=== PATIENT | male | born 1945 | race Caucasian/White ===

== ENCOUNTER 2018-04-30 07:30 | Inpatient (IN) ==
[~2018-04-30 07:30] MED LIST: Clindamycin 900mg (Premix) 900 MG/50 ML BAG IV ONE; LIDOCAINE W/ SODIUM BICARB 0.5 ML SYR SUBD ONE; Nasal Sanitizer POPSWAB ampule 3 AMP (Nozin) PREOP DOSE ENOS SCH
[2018-05-03] MEDS ORDERED: Clindamycin 900mg (Premix) 900 MG/50 ML BAG IV ONE ×2 (06:00→07:50)
[2018-05-03] MEDS ORDERED: LIDOCAINE W/ SODIUM BICARB 0.5 ML SYR SUBD ONE (06:00)
[2018-05-03] MEDS ORDERED: Nasal Sanitizer POPSWAB ampule 3 AMP (Nozin) PREOP DOSE ENOS SCH (06:00)
[2018-05-03] MEDS ORDERED: Lactated Ringers 1,000 ML PRIMARY IV SCH ×2 (06:00→13:42)
[2018-05-03] MEDS ORDERED: BUPivacaine Inj 0.25% PF - 10ml vial ONE (06:56)
[2018-05-03] MEDS ORDERED: Sodium Chloride 0.9% vial 40 ML ONE (06:56)
[2018-05-03] MEDS ORDERED: BACITRACIN 50,000 UNIT VIAL IRRIG ONE (06:56)
[2018-05-03] MEDS ORDERED: LIDOCAINE W/ SODIUM BICARB 0.5 ML SYR ONE (07:50)
[2018-05-03] MEDS ORDERED: Lactated Ringers 1,000 ML PRIMARY IV ONE (07:50)
[2018-05-03 08:29] LABS: BILIRUBIN,URINE NEGATIVE (NEG); CLARITY,URINE CLEAR (CLEAR); COLOR,URINE YELLOW (Y); GLUCOSE, URINE (UA) NEGATIVE (NEG); OCCULT BLOOD,URINE Trace-intact (NEG); PH,URINE 5.5 (5.0-8.5); PROTEIN,URINE NEGATIVE (NEG); RBC,URINE 0 /hpf; URINE SAMPLE TYPE CLEAN CATCH URINE; UROBILINOGEN,URINE 0.2 EU/dL (0.2)
[2018-05-03] MEDS ORDERED: fentaNYL Inj 250 MCG/5 ML VIAL ONE (09:29)
[2018-05-03] MEDS ORDERED: BUPIVACAINE 0.5% W/ EPI - 10 ML VIAL ONE (09:29)
[2018-05-03] MEDS ORDERED: MIDAZOLAM 5 MG/1 ML ONE (09:29)
[2018-05-03] MEDS ORDERED: Ropivacaine 0.2% VIAL 20 ML ONE (09:30)
--- NOTE | 2018-05-03 09:42 | CRNA.PROCE ---
Nerve Block Documentation - - Safety Measures: Time Out Taken, Site Verified - - Type of Nerve Block Used: Left Adductor Canal Nerve Block Position for Nerve Block: Supine Moniters Used During Block: EKG, SPO2, NIBP Oxygen Supplemented: Yes Sedation Used - Enter Amount in Comment Field [ANES.SEDAT]: Midazolam (mg): Yes (3), Fentanyl (mcg): Yes (50) Skin Prep Used: ChloroPrep (Twice) Draped: No Technique: Ultrasound Nerve Block Needle Used: EchoBright 50 mm Local Anesthetic - Enter Amt in Comment Field [ANES.LOCNB]: 0.5 % Bupivicaine with Epinephrine 1:200,000 (mL): Yes (10 ml), 0.2 % Ropivacaine (mL): Yes (20 ml ) Additives to Nerve Blocks: Dexamethasone (mg): Yes (4 mg) - - PreOp Block : Time In: 09:21 PreOp Block : Time Out: 09:35 Anesthesia Time - Other Weight: 77.111 kg Height: 5 ft 6 in Body Mass Index (BMI): 27.4
--- NOTE | 2018-05-03 09:43 | CRNA.PROGR ---
Anesthesia Recovery Phase I - Post Anesthesia Evaluation Patient's Condition on Arrival in Phase I: Stable Patient's Condition on Arrival in Phase II: Stable Pain Level: 0
--- NOTE | 2018-05-03 09:43 | CRNA.PROGR ---
Anesthesia Time - Procedure/Recovery Time Start Date: 05/03/18 End Date: 05/03/18 Anesthesia : Time In: 10:02 Anesthesia : Time Out: 13:05 Anesthesia : Total Time: 183 - Block Time PreOp Block : Time In: 09:21 PreOp Block : Time Out: 09:35 - Total Anesthesia Time Total Anesthesia Time (minutes): 183 - Other Weight: 77.111 kg Height: 5 ft 6 in Body Mass Index (BMI): 27.4 Physical Status: P2 Anesthesia Type: General Anesthesia : ET
--- NOTE | 2018-05-03 09:44 | CRNA.PROGR ---
Post Anesthesia Phase II - Post Anesthesia Phase II Patient Stable and Discharged To: Med/Surg Care Assumed By Surgeon: Antelmo Begum MD Temperature: 97.2 F Pulse Rate: 68 Respiratory Rate: 17 Blood Pressure: 157/98 Pulse Ox: 93 Total Linnea Score at Discharge: 9 Post Anesthesia Discharge Criteria Met: Yes
[2018-05-03] MEDS ORDERED: KETAMINE 100 MG/1 ML - 5 ML ONE (09:54)
[2018-05-03] MEDS ORDERED: PROPOFOL 10 MG/1 ML (200 MG/20 ML) VIAL IV ONE (09:54)
[2018-05-03] MEDS ORDERED: VECURONIUM BROMIDE 10 MG VIAL ONE (09:55)
[2018-05-03] MEDS ORDERED: Sodium Chloride 0.9% vial 10 ML ONE (09:55)
[2018-05-03] MEDS ORDERED: Ketorolac Inj 30 MG, Morphine Inj (Ortho Cocktail) 5 MG, BUPivacaine Inj 0.25% PF 150 MG SPLASH ONE ×3 (10:00)
[2018-05-03] MEDS ORDERED: TRANEXAMIC ACID 1,000 MG / 10 ML VIAL ONE (10:19)
[2018-05-03] MEDS ORDERED: Hetastarch 6% + NS 500 ML IV ONE (10:19)
[2018-05-03] MEDS ORDERED: BUPivacaine Liposome/PF (Exparel) Inj 20ml vial INFIL ONE (10:47)
[2018-05-03] MEDS ORDERED: ePHEDrine Inj 50 MG/ML AMP ONE (10:53)
--- NOTE | 2018-05-03 13:03 | ORTHO.OP ---
Surgery Date: 05/03/18 Preoperative Diagnosis: L medial compartment varus gonarthrosis Postoperative Diagnosis: same Procedure: Left [place] mobile bearing unicompartmental knee replacement Surgeon: Antelmo Begum MD Manager Utilization: Delia Greene PA-C Anesthesia Provider: Patsy Lyles CRNA Anesthesia Type: General, Regional Estimated Blood Loss (mL): 100 Fluids: 1000 ml LR. 500 ml Hespan Operative Summary: tt 30 min @ 250 mmHg
[2018-05-03 13:14] LABS: Hematocrit [HCT] 37.7 % (42.0-52.0); Hemoglobin [HGB] 12.5 g/dL (14.0-18.0)
[2018-05-03] MEDS ORDERED: LIDOCAINE HCL 2 % 10 ML JELLY URO-JECT TOPICAL PRN (13:42)
[2018-05-03] MEDS ORDERED: ONDANSETRON 4 MG/2 ML VIAL IVP PRN (13:42)
[2018-05-03] MEDS ORDERED: MORPHINE SULFATE 2 MG/1 ML IVP PRN (13:42)
--- NOTE | 2018-05-03 14:09 | DI ---
LEFT KNEE, 05/03/2018 1:00 PM: Clinical History: Status post partial knee replacement. Osteoarthritis. Previous Exam: None at this facility. AP and lateral views are submitted. The patient is status post partial left knee replacement. The pro sthetic joint articulates normally. Reading: Status post partial left medial compartment knee replacement. The prosthetic joint articulates normal ly.
[2018-05-03] MEDS: Lactated Ringers 1,000 ML PRIMARY IV SCH ×2 (14:58→15:04)
[2018-05-03] MEDS ORDERED: ACETAMINOPHEN 325 MG TABLET PO PRN (15:33)
[2018-05-03] MEDS: HYDROcodone-APAP 7.5 MG-325 MG TABLET PO PRN ×2 (15:47→20:49)
[2018-05-03] MEDS: Clindamycin 900mg (Premix) 900 MG/50 ML BAG IV SCH ×2 (15:47→22:17)
[2018-05-03] MEDS ORDERED: Zolpidem Tab 5 MG TAB PO PRN (16:32)
--- NOTE | 2018-05-03 18:16 | CONSULT ---
Consult Note - Consult Reason for Consult: PostOp Consulation : Ortho Requesting Physician: Dr. Begum Primary Care Provider: NICOLETTE WELLS HPI - History of Present Illness Date of Service: 05/03/18 Time of Service: 17:00 Chief Complaint: Osteoarthritis and knee pain History of Present Illness: This is a very pleasant 73-year-old male with hypertension and hypercholesterolemia and osteoarthritis of both knees. He came in today for a unipolar knee replacement on the left knee. That was performed by Dr. Begum today. He admitted the patient and did the surgery today and I would ask that you refer to Dr. Begum's surgical note for details of the procedure. The patient postoperatively, is doing very well. He denies any chest pain, shortness breath, nausea or vomiting, or abdominal pain. He did get a pain pill and his block is wearing up to some degree but he states his knee pain is well controlled. There were no other exacerbating factors. He did have a headache that we treated with some Tylenol a little earlier today. He states the headache is getting better. The history was obtained in the presence of his at bedside who collaborated the history. Past Medical History Surgical History: 1. Hypertension. 2. Hypercholesterolemia. 3. Chronic back pain with a nerve stimulator in place which patient states has decreased his pain by 50%. 4. Osteoarthritis of the knees bilaterally Pertinent Family History: There is history of heart disease in the patient's family. Past Social History: Does not smoke or drink. for 43 years. 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 Lives in [place], [place]. Has 2 living children. Tobacco Use: Never Smoker In the Past 12 Months, Have Used or Abuse Any of the Following Substance: None Alcohol Use: None Review of Systems - Respiratory Respiratory: REPORTS: Negative System Review - Cardiovascular Cardiovascular: REPORTS: Negative System Review - Gastrointestinal Gastrointestinal / Abdominal: REPORTS: Negative System Review - Musculoskeletal Musculoskeletal: REPORTS: See HPI Medication / Allergies Home Medications: Home Medications 3 Medication Instructions Recorded Confirmed Type Bupropion HCl [Bupropion HCl ER] 150 mg PO BID 04/29/18 05/03/18 History Losartan/Hydrochlorothiazide 1 mg PO DAILY 04/29/18 05/03/18 History [Losartan-Hctz 100-12.5 mg Tab] [place]-3 Fatty Acids [Fish Oil] 1 mg PO DAILY 04/29/18 05/03/18 History Simvastatin 20 mg PO DAILY 04/29/18 05/03/18 History Zolpidem Tartrate [Ambien] 5 mg PO PRN PRN 04/29/18 05/03/18 History Hydrocodone/Acetaminophen 1 - 2 ea PO Q4-6H PRN #70 tab 05/03/18 Rx [Hydrocodon-Acetaminoph 7.5-325] Omeprazole 20 mg PO DAILY 05/03/18 05/03/18 History Allergies/Adverse Reactions: Allergies 3 Allergy/AdvReac Type Severity Reaction Status Date / Time Penicillins Allergy RASH Verified 05/03/18 08:22 Exam - Vitals Vital Signs: Vital Signs Temperature 97.2 F Temperature Source Temporal Artery Scan Pulse Rate [Pulse Oximeter] 87 Pulse Rate 68 Respiratory Rate 16 Blood Pressure [Left Arm] 118/77 Blood Pressure 157/98 Pulse Ox 97 Oxygen Flow Rate 2 Oxygen Delivery Method Nasal Cannula Height 5 ft 6 in Weight 170 lb - General General Appearance: No Acute Distress, Cooperative - Head Head Exam: Normal Inspection, Normocephalic, Atraumatic - Eye Eye Exam: POSITIVE: No Scleral Icterus - ENT ENT Exam: POSITIVE: Mucous Membranes Moist - Neck Neck Exam: Normal Inspection, No Tenderness, No Lymphadenopathy, No Thyromegaly , JVP is not Raised - Respiratory Respiratory Exam: POSITIVE: Clear to Auscultation - Bilaterally, Breathing Non Labored - Cardiovascular Cardiovascular Exam: POSITIVE: RRR, No Murmur, No Clicks, No Gallops, No Rubs, No JVD - GI/Abdominal GI/Abdominal Exam: POSITIVE: Normal Bowel Sounds, Non Tender, Non Distended, Soft - Rectal Rectal Exam: POSITIVE: Deferred - External Exam: POSITIVE: Deferred Exam: POSITIVE: Deferred - Extremities Extremities Exam: POSITIVE: No Clubbing Present, No Edema Present, No Cyanosis Present Additional Extremities Exam Details: Left knee is currently in CPM device - Neurological Neurological Exam: POSITIVE: Alert, Oriented x 3, No Facial Droop, Speech Intact / Clear - Psychiatric Psychiatric Exam: POSITIVE: Normal Affect, Normal Mood Results - Labs CBC and BMP: 05/03/18 13:09 Assessment and Plan - Patient Problems (1) Hypertension Current Visit: Yes Status: Acute Code(s): I10 - Essential (primary) hypertension Qualifiers: Hypertension type: essential hypertension Qualified Code(s): I10 - Essential (primary) hypertension (2) Hypercholesterolemia Current Visit: Yes Status: Acute Code(s): E78.00 - Pure hypercholesterolemia , unspecified (3) Knee joint replacement status Current Visit: Yes Status: Acute Comment: Unipolar knee replacement Code(s): Z96.659 - Presence of unspecified artificial knee joint Qualifiers: Laterality: left Qualified Code(s): Z96.652 - Presence of left artificial knee joint (4) Osteoarthritis of both knees Current Visit: Yes Status: Acute Code(s): M17.0 - Bilateral primary osteoarthritis of knee Qualifiers: Osteoarthritis type: primary Qualified Code(s): M17.0 - Bilateral primary osteoarthritis of knee - Assessment / Plan Additional Assessment/Plan Details: For now, I would recommend holding off on the patient's losartan/ hydrochlorothiazide, due to associations of angiotensin receptor blockers with perioperative renal failure and hypotension and I've asked the patient and his to resume that medication for the patient on Sunday. PT and OT as per orthopedics DVT prophylaxis as per orthopedics. Continue statin therapy and resume simvastatin during hospital stay. Thank you for this consult. It will be our pleasure to evaluate and assist in the management of hypertension and hypercholesterolemia during the patient's hospital stay.
[2018-05-03] MEDS: DOCUSATE 100 MG CAPSULE PO SCH (20:47)
[2018-05-03] MEDS: BuPROPion SR Tab 150 MG TAB PO SCH (20:47)
[2018-05-04] MEDS: HYDROcodone-APAP 7.5 MG-325 MG TABLET PO PRN ×3 (02:35→11:12)
[2018-05-04] MEDS: Clindamycin 900mg (Premix) 900 MG/50 ML BAG IV SCH (04:34)
[2018-05-04 04:38] LABS: Hematocrit [HCT] 36.5 % (42.0-52.0); Hemoglobin [HGB] 12.3 g/dL (14.0-18.0); MEAN CORPUSCULAR HEMOGLOBIN 29.9 PG (27-31); MEAN CORPUSCULAR HGB CONC 33.7 g/dL (33-37); MEAN CORPUSCULAR VOLUME 88.8 FL (80-90); MEAN PLATELET VOLUME 10.2 FL (7.4-12.2); RED BLOOD COUNT 4.11 10^6/uL (4.70-6.10)
[2018-05-04 04:58] LABS: BLOOD UREA NITROGEN 15 mg/dL (7-22); BUN/CREATININE RATIO 18.75 (6-20)
[2018-05-04 08:19] VITALS: BP 128/63; RESP 20; TEMP 98.2; O2SAT 94
[2018-05-04] MEDS ORDERED: OMEPRAZOLE 20 MG CAPSULE PO SCH (09:00)
[2018-05-04] MEDS ORDERED: ENOXAPARIN SODIUM 30 MG/0.3 ML SYRINGE SUBCUT SCH (09:00)
[2018-05-04] MEDS: DOCUSATE 100 MG CAPSULE PO SCH (09:45)
--- NOTE | 2018-05-04 09:48 | ORTHO.PROG ---
Last Taken Vital Signs: Vital Signs - Last Taken Temperature 98.2 F 05/04/18 08:00 Pulse Rate 83 05/04/18 08:00 Respiratory Rate 20 05/04/18 08:00 Blood Pressure 128/63 05/04/18 08:00 Pulse Ox 94 05/04/18 08:00 Subjective: Patient was down in PT when I saw him. He was ambulating well and going to work on stairs. He reports having medial knee pain as expected, but feels that his pain is controlled on the Hydrocodone. Denies any calf pain, CP, SOB, F/C. He states he feels ready to go home today. Objective: CBC and BMP 05/04/18 04:20 05/04/18 04:20 On exam, there patient is alert and orient x 3 and does not appear to be in any acute distress. There is a small amount of serosanguinous drainage on the bandage, but not saturated. AROM left knee 0-90 degrees without difficulties. Negative calf tenderness. NV intact. Radiographs of the left knee show status post Left medial UKA. The components are well fixed and positioned. Assessment: POD 1 from Left medial UKA overall doing well and pain is well controlled. Labs and vitals are stable. Plan: * DVT ppx: lovenox 30mg SC BID in hospital then discharged home on ASA 81mg 1 tablet daily. Also discharge home with portable SCD devices to wear 8 hours/day when on couch or in bed. * Pain medications: continue hydrocodone 7.5/325mg 1-2 tabs every 4-6 hours as needed for pain * PT: continue upon discharge per Dr. Begum's TKA protocol. Start outpatient PT on Sunday. * Ambulate with walker WBAT * Dressing may be removed on POD 3 and shower as normal. No soaking the incision x 4 weeks. * Discharge home once cleared by hospitalist and PT * Follow-up in 2 weeks as scheduled with ortho
[2018-05-04] MEDS: BuPROPion SR Tab 150 MG TAB PO SCH (10:26)
--- NOTE | 2018-05-04 10:40 | EKG ---
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
--- NOTE | 2018-05-04 11:22 | DCSUMMARY ---
Hospitalization Summary Admit Date: 05/03/2018 Discharge Date: 05/04/18 Primary Diagnosis:: status post unipolar left knee replacement Hospital Course: This very pleasant 73-year-old male who has bilateral knee osteoarthritis and had a unipolar knee replacement performed by Dr. Begum on 05/03/2018. See his notes and history and physical for further details. Postoperatively, the patient did very well. The hospital service was consulted to help address blood pressure and I made the choice to hold losartan/HCTZ and resume Sunday postoperatively. Patient is understood that instruction well. From a orthopedic standpoint, the patient met all of his PT and OT goes inside the hospital, his pain was well-controlled and he was ready to go home today. I did hear what sounded like an arrhythmia and EKG confirmed a sinus arrhythmia. I discussed this with the patient and his . They have cardiology follow-up in August as this is a benign rhythm, I think the patient can go home. He has no complaints of chest pain, shortness breath, nausea or vomiting. PT and OT and DVT prophylaxis will be done as per orthopedics. As the patient lives in [place], [place], I went ahead and sent in a pain prescription electronically to [facility] so the prescription would be waiting for the patient's who will be picking up his pain medication to bring home. I did not provide a refill. Assessment and Plan: 1. As per discharge assessments noted 2. Disposition: Patient is discharged home. 3. Condition on discharge, stable and improved. 4. Diet: regular diet 5. Activities: resume normal activities as per orthopedic instructions 6. Follow-Up: 1. Dr. Begum [address] Rinaldi in 1-2 weeks 7. Medications at the Time of Discharge: Home Medications 3 Medication Instructions Recorded Confirmed Type Bupropion HCl [Bupropion HCl ER] 150 mg PO BID 04/29/18 05/03/18 History Losartan/Hydrochlorothiazide 1 mg PO DAILY 04/29/18 05/03/18 History [Losartan-Hctz 100-12.5 mg Tab] [place]-3 Fatty Acids [Fish Oil] 1 mg PO DAILY 04/29/18 05/03/18 History Simvastatin 20 mg PO DAILY 04/29/18 05/03/18 History Zolpidem Tartrate [Ambien] 5 mg PO PRN PRN 04/29/18 05/03/18 History Hydrocodone/Acetaminophen 1 - 2 ea PO Q4-6H PRN #70 tab 05/03/18 Rx [Hydrocodon-Acetaminoph 7.5-325] Omeprazole 20 mg PO DAILY 05/03/18 05/03/18 History Aspirin [Aspir 81] 81 mg PO DAILY #30 tablet. 05/04/18 Rx HYDROcodone/APAP 7.5/325 Tab 1 - 2 tab PO Q4H PRN #60 tab 05/04/18 Rx [[place] 7.5/325 Tab] 8. Time, care, counseling and coordination of care for this discharge is less than 30 minutes. Exam - Vitals Vital Signs: Vital Signs Temperature 98.2 F Temperature Source Oral Pulse Rate [Pulse Oximeter] 83 Pulse Rate 68 Respiratory Rate 20 Blood Pressure [Left Arm] 128/63 Blood Pressure 157/98 Pulse Ox 94 Oxygen Flow Rate 2 Oxygen Delivery Method Room Air Height 5 ft 6 in Weight 168 lb 14.4 oz - General General Appearance: No Acute Distress, Cooperative - Eye Eye Exam: POSITIVE: No Scleral Icterus - ENT ENT Exam: POSITIVE: Mucous Membranes Moist - Respiratory Respiratory Exam: POSITIVE: Clear to Auscultation - Bilaterally, Breathing Non Labored - Cardiovascular Cardiovascular Exam: POSITIVE: RRR (Sinus arrhythmia confirmed.), No Murmur, No Clicks, No Gallops, No Rubs, No JVD - GI/Abdominal GI/Abdominal Exam: POSITIVE: Normal Bowel Sounds, Non Tender, Non Distended, Soft - Extremities Extremities Exam: POSITIVE: No Clubbing Present, No Edema Present, No Cyanosis Present Additional Extremities Exam Details: Left knee is dressed. A Cryo/Cuff and place. Dressing is clean, dry, intact - Neurological Neurological Exam: POSITIVE: Alert, Oriented x 3, No Facial Droop, Speech Intact / Clear, Moves All Extremities Equally Data Peritnent Studies: Laboratory Results 05/03/18 05/04/18 05/04/18 Range/Units 13:09 04:20 04:20 WBC 14.44 H (4.8-10.8) 10^3/uL RBC 4.11 L (4.70-6.10) 10^6/uL Hgb 12.5 L 12.3 L (14.0-18.0) g/dL Hct 37.7 L 36.5 L (42.0-52.0) % MCV 88.8 (80-90) FL MCH 29.9 (27-31) PG MCHC 33.7 (33-37) g/dL RDW Std Deviation 40.9 (39-50) fL RDW Coeff of [place] 12.8 (11.5-14.5) % Plt Count 225 (140-350) 10*3/uL MPV 10.2 (7.4-12.2) FL Sodium 136 (135-145) meq/L Potassium 4.2 (3.8-5.2) meq/L Chloride 105 (98-112) meq/L Carbon Dioxide 28 (23-33) meq/L Anion Gap 3 L (5-20) BUN 15 (7-22) mg/dL Creatinine 0.8 (0.70-1.50) mg/dL BUN/Creatinine Ratio 18.75 (6-20) Glucose 118 H (78-110) mg/dL Calculated Osmolality 283.0 (267-292) mOsm/kg Calcium 8.4 L (8.7-10.7) mg/dL Patient Problems - Patient Problem List (1) Knee joint replacement status Current Visit: Yes Status: Acute Code(s): Z96.659 - Presence of unspecified artificial knee joint Qualifiers: Laterality: left Qualified Code(s): Z96.652 - Presence of left artificial knee joint Category: Medical (2) Hypertension Current Visit: Yes Status: Acute Code(s): I10 - Essential (primary) hypertension Qualifiers: Hypertension type: essential hypertension Qualified Code(s): I10 - Essential (primary) hypertension Category: Medical (3) Hypercholesterolemia Current Visit: Yes Status: Acute Code(s): E78.00 - Pure hypercholesterolemia , unspecified Category: Medical (4) Osteoarthritis of both knees Current Visit: Yes Status: Acute Code(s): M17.0 - Bilateral primary osteoarthritis of knee Qualifiers: Osteoarthritis type: primary Qualified Code(s): M17.0 - Bilateral primary osteoarthritis of knee Category: Medical (5) Sinus arrhythmia Current Visit: Yes Status: Acute Code(s): I49.8 - Other specified cardiac arrhythmias Category: Medical
[2018-05-04] MEDS ORDERED: Simvastatin Tab 20 MG TAB PO SCH (21:00)
--- NOTE | 2018-05-06 09:09 | PTI REPORT ---
Thank you for the referral of Thong Otero. He was seen on 05/03/18 for an inpatient evaluation status post left total knee arthroplasty. SUBJECTIVE: The patient is a 73-year-old male who underwent a left total knee replacement earlier today. The patient states that he is starting to feel a little pain in his knee and reports a pain level of 4 to 5/10 on the verbal analog scale (0=no pain, 10=worst pain). The patient states he has recently received a pain pill. The patient also complains of a headache which he states he has had since surgery. The patient is on a CPM at this time, which was placed on after he got onto the floor. The patient states he would like to try to get moving and try to use the bathroom as he has not been able to do so since out of surgery. The patient's was present during the initial evaluation. They state that they live in [place], [place]. They have four stairs into the home with a railing on the left side and two small steps within the house in order to go from the kitchen to the living room. Prior to surgery, the patient denies any falls and states he was not using any type of assistive device; although they did bring a walker with that they would like fit properly for the patient in order for him to use once returning home. PAST MEDICAL HISTORY: Past medical history can be found in the patient's medical record. OBJECTIVE FINDINGS: General observations: The patient was alert and oriented to setting upon PT arrival. The patient was supine in bed with head of bed elevated slightly and the CPM on the left lower extremity from 0 to 90 degrees. The patient was on two liters of oxygen with his oxygen saturation at 96% and did have an IV in place. In a supine position, the patient's blood pressure was 108/49. Due to the low blood pressure, the therapist opted not to move the patient initially. After speaking with the patient for a few minutes, he really had to try to use the bedside commode and was unable to do so in a supine position. Bed mobility: The CPM was removed and the patient did move from supine to seated edge of bed position. The patient denied any lightheadedness or dizziness. The patient did have contact guard assist x2 and he did require min assist x1 when transferring to edge of bed. The patient demonstrated fair seated edge of bed balance and was given the bedside urinal. The patient sat edge of bed for approximately 5 minutes. Transfers: The patient was continuing to have difficulties going and he did attempt to slightly stand. He did have contact guard assist x2 for safety and was placing most of his weight through his right lower extremity. In the standing position he was able to urinate 200 ML. Nursing staff was notified. After that, the patient stated that he felt dizzy. His blood pressure was taken and was 121/91. He was then transferred with min assist x1 back to a supine position. Blood pressure was 133/73. The patient continued to complain of dizziness and nausea. Once the patient's symptoms slightly subsided, we did raise the head of the bed to a comfortable position for him and placed the CPM back on the left lower extremity. We also helped the patient order his supper for the night. Once the patient was back in position, he still had a little dizziness, but overall was doing better. ASSESSMENT: The patient has good rehab potential. Problem List: Left knee pain Decreased strength in the left knee Decreased range of motion in the left knee Short-Term Goals: To be met by discharge from inpatient: Patient will be able to transfer from bed to stand safely and independently. Patient will be able to ambulate at least 150 feet with walker safely and independently. Patient will be able to ascend and descend at least 5 stairs with walker safely and independently in order to return back home. Long-Term Goals: To be met following discharge from inpatient: Patient will be seen by outpatient physical therapy for post op knee care. TREATMENT PLAN: Patient will be seen B.I.D during the week and one time per day over the weekend as an inpatient to address the above goals and objectives. INITIAL TREATMENT: Treatment today consisted of the initial evaluation and one unit of functional activity. FARZANA
--- NOTE | 2018-05-06 09:18 | PT AM DAY ---
Diagnosis : Left Total Knee Arthroplasty AM - Physical Therapy S: The patient states he is doing very well this morning. He reports minimal pain of his left knee. The patient states that his surgeon's PA was in earlier to see him today and he is able to go home if he meets all of our therapy goals. The patient denies any lightheadedness or dizziness this morning. He states he is feeling much better than last night and is really looking forward to participating in PT. O: The patient was instructed on dressing. He was able to dress his top and bottom half independently and safely. He did struggle with taking off and putting on the sock on the left lower extremity. The patient was instructed on how to use the manager line and sock aide and demonstrated competency with these and was able to don and doff his left sock. We did discuss the patient's home set up and due to the low toilet that they have in the home, the patient was issued a toilet seat with handles. After dressing, the patient ambulated with contact guard assist x1 for safety and did require some verbal cueing in order to weight -bear through the left lower extremity with walker x150 feet. Once he was down in therapy he did receive an application of moist heat pack x15 minutes to the left knee followed by micro-current massage to the left knee for the swelling. The patient was instructed on therapeutic exercises including quad sets, heel slides, glut sets, ankle dorsiflexion/plantarflexion, straight leg raises, short arc quads, sit to stands, and box step ups onto a 4" box, all x10. The patient did have a little drainage from the inferior portion of his incision onto the gauze. The therapist kept the silver lining in place and placed Covaderm bandages over top and wrapped with Jose M bandage. The patient was issued some Covaderm bandages for home. The patient was then instructed on how to ambulate up and down stairs with use of walker. The patient was able to perform one flight of stairs safely and independently with very minimal cueing initially for walker placement. The patient then ambulated back up to his room x150 feet with stand by assist x1 for safety. Once in his room, the patient transferred to supine in bed and the cryo cuff was placed around his knee. Call light was left within reach. Nursing staff was notified that the patient did meet his goals. A: The patient did very well with therapy. He demonstrated ability to perform stairs and ambulate with very minimal assistance. He does have a few safety awareness issues at times when getting up off of the mat with no one around. We did discuss that. Otherwise, the patient has met all goals for therapy and is safe to discharge home. Him and his were instructed to continue to watch for drainage from his incision and were issued extra bandages if he does continue to have a little bit of drainage. P: Patient will most likely be discharged to home this afternoon. [email or web address]
== END 2018-05-04 12:22 | disposition home or self-care (01) | DRG 470 ==
LOC: OPS 05-03 07:32 → MED/SURG 05-03 13:32
PROVIDERS: ADMIT Orthopaedic Surgery; ATTEND Orthopaedic Surgery